=== PATIENT | male | born 1950 | race Hispanic/Latino ===

== ENCOUNTER 2021-09-15 06:16 | Inpatient (IN) | payer OTHER, MEDICARE ==
[~2021-09-15] VITALS: Ht 177.8 cm; Wt 90.7 kg
[~2021-09-15 06:16] MED LIST: CALCITRIOL0.25 MCG PO; CARVEDILOL25 MG PO; FINASTERIDE5 MG PO; FLOMAX0.4 MG PO; LIPITOR10 MG PO; NIFEDIPINE ER30 M1 PO; SENSIPAR60 MG PO; SEVELAMER CARB800 MG PO
[2021-09-15] MEDS ORDERED: SODIUM CHLORIDE 0.9% 500ML 500 ML ONE (06:46)
[2021-09-15] MEDS ORDERED: GENTAMICIN 80MG/NS 100 ML 100 ML IV ONE (06:56)
[2021-09-15] MEDS ORDERED: SODIUM CHLORIDE 0.9% 50ML 50 ML ONE (06:57)
[2021-09-15] MEDS ORDERED: PIPERACILLIN/TAZOBACTAM 3.375 GM VIAL ONE (06:57)
[2021-09-15 07:07] LABS: BASOPHILS % 0.3 % (0.0-1.0); EOSINOPHILS # (AUTO) 0.5 (0.0-0.4); EOSINOPHILS % 4.8 % (0.0-6.0); HEMATOCRIT 32.9 % (38.2-49.6); HEMOGLOBIN 10.5 g/dL (14.0-18.0); LYMPHOCYTES # (AUTO) 0.9 (1.0-3.2); LYMPHOCYTES % 9.3 % (18.0-39.1); MEAN CORPUSCULAR HEMOGLOBIN 29.4 pg (28-32); MEAN CORPUSCULAR HGB CONC 31.9 g/dL (31-35); MEAN CORPUSCULAR VOLUME 92.2 fL (81-99); MONOCYTES # (AUTO) 0.5 (0.2-0.8); MONOCYTES % 4.8 % (4.4-11.3); NEUTROPHILS % 80.5 % (38.7-80.0); PLATELET COUNT 178 x10e3/uL (140-360); RED BLOOD COUNT 3.57 x10e6/uL (4.3-5.7); RED CELL DISTRIBUTION WIDTH 13.7 % (11.7-14.4)
[2021-09-15 07:28] LABS: ANION GAP 13.4 mmol/L (8-16); CALCIUM 9.4 mg/dL (8.4-10.2); CREATININE, SERUM 8.51 mg/dL (0.72-1.25); POTASSIUM 5.4 mmol/L (3.5-5.1)
[2021-09-15 07:32] LABS: INR 1.01; PROTHROMBIN TIME 14.2 seconds (11.9-14.5)
[2021-09-15 07:33] LABS: PARTIAL THROMBOPLASTIN TIME 34.3 seconds (23.8-35.5)
[2021-09-15] MEDS ORDERED: IOPAMIDOL 300MG/ML 50ML INFUS..BTL IV ONE (08:25)
[2021-09-15] MEDS ORDERED: B&O 60MG R/S 60 MG SUPP PR ONE (08:25)
[2021-09-15] MEDS ORDERED: HEPARIN SOD/SOD CHLORIDE 1,000 ML ONE (08:34)
[2021-09-15] MEDS ORDERED: HYDRALAZINE HCL 20 MG/ML VIAL ONE (11:26)
[2021-09-15] MEDS ORDERED: FENTANYL CITRATE/PF 100MCG/2 ML INJ ONE ×2 (11:31→13:38)
[2021-09-15] MEDS ORDERED: PHENAZOPYRIDINE HCL 100 MG TAB PO PRN (11:45)
[2021-09-15] MEDS ORDERED: ONDANSETRON HCL INJ 2MG/ML 2ML 2 MG/ML VIAL IV PRN (11:45)
[2021-09-15] MEDS ORDERED: DIPHENHYDRAMINE HCL 25 MG CAP PO PRN (11:45)
[2021-09-15] MEDS ORDERED: Morphine 4mg Syringe 4 MG/ML INJ ONE ×2 (11:50→12:46)
[2021-09-15 12:16] LABS: BASOPHILS % 0.2 % (0.0-1.0); EOSINOPHILS # (AUTO) 0.3 (0.0-0.4); EOSINOPHILS % 1.7 % (0.0-6.0); HEMATOCRIT 35.5 % (38.2-49.6); HEMOGLOBIN 11.3 g/dL (14.0-18.0); LYMPHOCYTES # (AUTO) 0.7 (1.0-3.2); LYMPHOCYTES % 3.7 % (18.0-39.1); MEAN CORPUSCULAR HEMOGLOBIN 29.8 pg (28-32); MEAN CORPUSCULAR HGB CONC 31.8 g/dL (31-35); MEAN CORPUSCULAR VOLUME 93.7 fL (81-99); MONOCYTES # (AUTO) 0.1 (0.2-0.8); MONOCYTES % 0.8 % (4.4-11.3); NEUTROPHILS % 92.3 % (38.7-80.0); PLATELET COUNT 194 x10e3/uL (140-360); RED BLOOD COUNT 3.79 x10e6/uL (4.3-5.7); RED CELL DISTRIBUTION WIDTH 13.8 % (11.7-14.4)
[2021-09-15 12:38] LABS: ANION GAP 14.9 mmol/L (8-16); CALCIUM 8.9 mg/dL (8.4-10.2); CREATININE, SERUM 8.07 mg/dL (0.72-1.25); POTASSIUM 5.9 mmol/L (3.5-5.1)
[2021-09-15] MEDS ORDERED: DEXAMETHASONE SOD PHOS INJ 4 MG/ML SDV ONE (13:22)
[2021-09-15] MEDS ORDERED: SEVOFLURANE INHAL SOLN 250 ML PEN BTL ONE (13:22)
[2021-09-15] MEDS ORDERED: POVIDONE IODINE 0.05% 0.05 % ML PO ONE (13:22)
[2021-09-15] MEDS ORDERED: LIDOCAINE HCL 2% LOCAL INJ 5 ML SDV VIAL INJ ONE (13:22)
[2021-09-15] MEDS ORDERED: ONDANSETRON HCL INJ 2MG/ML 2ML 2 MG/ML VIAL ONE (13:22)
[2021-09-15] MEDS ORDERED: EPHEDRINE SULFATE INJ 50 MG/ML VIAL ONE (13:22)
[2021-09-15] MEDS ORDERED: PROPOFOL IV EMULSION 10 MG/ML 20 ML VIAL ONE (13:22)
[2021-09-15] MEDS ORDERED: MIDAZOLAM HCL 2 MG/2 ML VIAL ONE (13:38)
[2021-09-15 13:48] VITALS: BP 131/63
[2021-09-15 13:49] VITALS: BP 131/63
[2021-09-15 13:53] VITALS: BP 131/63
[2021-09-15] MEDS: SODIUM CHLORIDE 0.9% 1000ML 1,000 ML IV SCH (14:34)
[2021-09-15] MEDS: TRAMADOL HCL 50 MG TAB PO PRN (14:34)
[2021-09-15] MEDS: PIPERACILLIN/TAZOBACTAM 2.25 GM in SODIUM CHLORIDE 0.9% 50ML 50 ML IV SCH ×2 (14:48→23:21)
[2021-09-15] MEDS ORDERED: SOD POLYSTYRENE SULFONATE SUSP 15 GM/60 ML BTL PO ONE (16:00)
[2021-09-15 16:04] VITALS: BP 127/65
[2021-09-15] MEDS: DOCUSATE SODIUM 100 MG CAP PO SCH (16:07)
[2021-09-15] MEDS: SODIUM BICARBONATE 650 MG TAB PO SCH (16:18)
[2021-09-15 20:00] VITALS: BP 123/67
[2021-09-15 21:09] VITALS: BP 123/67
[2021-09-16] VITALS (7 sets, daily range): BP systolic 122–150; BP diastolic 72–77
[2021-09-16] MEDS: SODIUM CHLORIDE 0.9% 1000ML 1,000 ML IV SCH ×2 (04:54→16:47)
[2021-09-16 05:55] LABS: BASOPHILS % 0.1 % (0.0-1.0); HEMATOCRIT 31.8 % (38.2-49.6); HEMOGLOBIN 10.2 g/dL (14.0-18.0); LYMPHOCYTES # (AUTO) 0.6 (1.0-3.2); LYMPHOCYTES % 3.1 % (18.0-39.1); MEAN CORPUSCULAR HEMOGLOBIN 29.6 pg (28-32); MEAN CORPUSCULAR HGB CONC 32.1 g/dL (31-35); MEAN CORPUSCULAR VOLUME 92.2 fL (81-99); MONOCYTES # (AUTO) 0.9 (0.2-0.8); MONOCYTES % 4.6 % (4.4-11.3); NEUTROPHILS # (AUTO) 18.5 (2.1-6.9); NEUTROPHILS % 91.5 % (38.7-80.0); PLATELET COUNT 203 x10e3/uL (140-360); RED BLOOD COUNT 3.45 x10e6/uL (4.3-5.7); RED CELL DISTRIBUTION WIDTH 13.9 % (11.7-14.4)
[2021-09-16 06:25] LABS: CALCIUM 9.1 mg/dL (8.4-10.2); CREATININE, SERUM 7.72 mg/dL (0.72-1.25)
[2021-09-16] MEDS: PIPERACILLIN/TAZOBACTAM 2.25 GM in SODIUM CHLORIDE 0.9% 50ML 50 ML IV SCH ×2 (06:49→14:37)
[2021-09-16] MEDS: DOCUSATE SODIUM 100 MG CAP PO SCH ×2 (08:49→16:19)
[2021-09-16] MEDS: SODIUM BICARBONATE 650 MG TAB PO SCH ×2 (08:49→16:20)
[2021-09-16] MEDS ORDERED: NON-FORMULARY MEDICATION (Carvedilol 25 MG) PO SCH (09:00)
[2021-09-16] MEDS: FINASTERIDE 5 MG TAB PO SCH (09:42)
[2021-09-16] MEDS: TAMSULOSIN HCL 0.4 MG CAP PO SCH ×2 (09:42→16:19)
[2021-09-16] MEDS: CARVEDILOL 12.5 MG TAB PO SCH ×2 (09:43→21:29)
[2021-09-16] MEDS: CALCITRIOL 0.25 MCG CAP PO SCH (09:43)
[2021-09-16] MEDS: CINACALCET 30 MG TAB PO SCH (12:30)
[2021-09-16] MEDS: SEVELAMER CARBONATE 800 MG TAB PO SCH ×2 (12:30→16:19)
[2021-09-16] MEDS: ATORVASTATIN 40 MG TAB PO SCH (21:29)
[2021-09-16] MEDS: NIFEDIPINE CR 30 MG TAB PO SCH (21:29)
[2021-09-17] VITALS (8 sets, daily range): BP systolic 108–147; BP diastolic 60–76
[2021-09-17] MEDS: PIPERACILLIN/TAZOBACTAM 2.25 GM in SODIUM CHLORIDE 0.9% 50ML 50 ML IV SCH ×4 (00:21→23:00)
[2021-09-17 05:50] LABS: BASOPHILS # (AUTO) 0.1 (0.0-0.1); BASOPHILS % 0.4 % (0.0-1.0); EOSINOPHILS # (AUTO) 0.5 (0.0-0.4); EOSINOPHILS % 3.8 % (0.0-6.0); HEMATOCRIT 29.2 % (38.2-49.6); HEMOGLOBIN 9.3 g/dL (14.0-18.0); LYMPHOCYTES # (AUTO) 0.9 (1.0-3.2); LYMPHOCYTES % 6.4 % (18.0-39.1); MEAN CORPUSCULAR HEMOGLOBIN 29.6 pg (28-32); MEAN CORPUSCULAR HGB CONC 31.8 g/dL (31-35); MONOCYTES # (AUTO) 0.9 (0.2-0.8); MONOCYTES % 6.3 % (4.4-11.3); NEUTROPHILS # (AUTO) 11.6 (2.1-6.9); NEUTROPHILS % 82.4 % (38.7-80.0); PLATELET COUNT 187 x10e3/uL (140-360); RED BLOOD COUNT 3.14 x10e6/uL (4.3-5.7)
[2021-09-17 06:13] LABS: ANION GAP 11.2 mmol/L (8-16); CREATININE, SERUM 7.8 mg/dL (0.72-1.25); POTASSIUM 4.2 mmol/L (3.5-5.1)
[2021-09-17] MEDS: SODIUM CHLORIDE 0.9% 1000ML 1,000 ML IV SCH ×3 (06:16→21:06)
[2021-09-17] MEDS: SEVELAMER CARBONATE 800 MG TAB PO SCH ×3 (07:30→16:30)
[2021-09-17] MEDS: CALCITRIOL 0.25 MCG CAP PO SCH (09:00)
[2021-09-17] MEDS: SODIUM BICARBONATE 650 MG TAB PO SCH ×2 (09:00→17:00)
[2021-09-17] MEDS: TAMSULOSIN HCL 0.4 MG CAP PO SCH ×2 (09:00→17:00)
[2021-09-17] MEDS: CINACALCET 30 MG TAB PO SCH (09:00)
[2021-09-17] MEDS: FINASTERIDE 5 MG TAB PO SCH (09:00)
[2021-09-17] MEDS: DOCUSATE SODIUM 100 MG CAP PO SCH ×2 (09:00→17:00)
[2021-09-17] MEDS ORDERED: ONDANSETRON HCL 4 MG ORAL DISINTEGRATING TAB PO PRN (09:00)
[2021-09-17] MEDS: CARVEDILOL 12.5 MG TAB PO SCH ×2 (09:00→21:07)
[2021-09-17] MEDS: TRAMADOL HCL 50 MG TAB PO PRN (18:30)
[2021-09-17] MEDS: ATORVASTATIN 40 MG TAB PO SCH (21:07)
[2021-09-17] MEDS: NIFEDIPINE CR 30 MG TAB PO SCH (21:07)
[2021-09-18] VITALS: BP 111/66
[2021-09-18 04:00] VITALS: BP 127/62
[2021-09-18] MEDS: PIPERACILLIN/TAZOBACTAM 2.25 GM in SODIUM CHLORIDE 0.9% 50ML 50 ML IV SCH ×2 (05:38→15:00)
[2021-09-18 05:55] LABS: BASOPHILS % 0.3 % (0.0-1.0); EOSINOPHILS # (AUTO) 0.6 (0.0-0.4); EOSINOPHILS % 6.3 % (0.0-6.0); HEMATOCRIT 26.3 % (38.2-49.6); HEMOGLOBIN 8.6 g/dL (14.0-18.0); LYMPHOCYTES # (AUTO) 0.7 (1.0-3.2); LYMPHOCYTES % 6.9 % (18.0-39.1); MEAN CORPUSCULAR HEMOGLOBIN 29.8 pg (28-32); MEAN CORPUSCULAR HGB CONC 32.7 g/dL (31-35); MONOCYTES # (AUTO) 0.6 (0.2-0.8); MONOCYTES % 6.2 % (4.4-11.3); NEUTROPHILS # (AUTO) 8.2 (2.1-6.9); NEUTROPHILS % 79.7 % (38.7-80.0); PLATELET COUNT 161 x10e3/uL (140-360); RED BLOOD COUNT 2.89 x10e6/uL (4.3-5.7); RED CELL DISTRIBUTION WIDTH 13.6 % (11.7-14.4)
[2021-09-18 06:20] LABS: ANION GAP 8.8 mmol/L (8-16); CALCIUM 7.7 mg/dL (8.4-10.2); CREATININE, SERUM 7.49 mg/dL (0.72-1.25); POTASSIUM 3.8 mmol/L (3.5-5.1)
[2021-09-18] MEDS: SEVELAMER CARBONATE 800 MG TAB PO SCH ×4 (07:30→16:30)
[2021-09-18 07:36] VITALS: BP 120/62
[2021-09-18] MEDS: SODIUM BICARBONATE 650 MG TAB PO SCH ×2 (09:00→17:00)
[2021-09-18] MEDS: CALCITRIOL 0.25 MCG CAP PO SCH (09:00)
[2021-09-18] MEDS: FINASTERIDE 5 MG TAB PO SCH (09:00)
[2021-09-18] MEDS: TAMSULOSIN HCL 0.4 MG CAP PO SCH ×2 (09:00→17:00)
[2021-09-18] MEDS: CINACALCET 30 MG TAB PO SCH (09:00)
[2021-09-18] MEDS: DOCUSATE SODIUM 100 MG CAP PO SCH ×2 (09:00→17:00)
[2021-09-18] MEDS: CARVEDILOL 12.5 MG TAB PO SCH (09:00)
[2021-09-18] MEDS: SODIUM CHLORIDE 0.9% 1000ML 1,000 ML IV SCH (09:10)
[2021-09-18 10:02] VITALS: BP 120/62
[2021-09-18 11:35] VITALS: BP 103/67
[2021-09-18 15:48] VITALS: BP 110/62
[2021-09-18] MEDS ORDERED: LEVOFLOXACIN250 MG PO (17:39)
== END 2021-09-18 18:03 | disposition home or self-care (01) | DRG 713 ==
LOC: OR 06:16 → PACU V 11:38 → MED/SURG 13:20
PROVIDERS: ADMIT Internal Medicine; ATTEND Internal Medicine
PROC: 0VB07ZX Excision of Prostate, Via Natural or Artificial Opening, Diagnostic (ICD-10-PCS; principal; 2021-09-15 09:24)
PROC: 0V508ZZ Destruction of Prostate, Via Natural or Artificial Opening Endoscopic (ICD-10-PCS; 2021-09-15 09:24)
PROC: 3E1M39Z Irrigation of Peritoneal Cavity using Dialysate, Percutaneous Approach (ICD-10-PCS; 2021-09-16)
DX: N40.1 Benign prostatic hyperplasia with lower urinary tract symptoms (principal); I12.0 Hypertensive chronic kidney disease with stage 5 chronic kidney disease or end stage renal disease; N18.5 Chronic kidney disease, stage 5; E87.2 Acidosis; N13.8 Other obstructive and reflux uropathy; R33.8 Other retention of urine; R31.29 Other microscopic hematuria; R97.20 Elevated prostate specific antigen [PSA]; E11.22 Type 2 diabetes mellitus with diabetic chronic kidney disease; Z99.2 Dependence on renal dialysis; Z96.652 Presence of left artificial knee joint; Z88.5 Allergy status to narcotic agent; Z85.038 Personal history of other malignant neoplasm of large intestine; Z98.890 Other specified postprocedural states; R39.14 Feeling of incomplete bladder emptying; Z20.822 Contact with and (suspected) exposure to COVID-19
CPT/HCPCS: 36415; 71046; 74420; 76872; 76998; 80048; 82948; 83735; 85025; 85610; 85730; 86705; 86706; 87340; 88305; 94799; C1758; J0360; J1100; J1580; J2001; J2250; J2270; J2405; J2543; J3010; J7030; J7040; U0002

== ENCOUNTER → 2022-10-27 | Outpatient (CLI) | payer MEDICARE ==
[~2022-10-27] MED LIST changes: +LEVOFLOXACIN250 MG PO
== END ==
LOC: US 12:31
PROVIDERS: ATTEND Urology
DX: N28.1 Cyst of kidney, acquired (principal); N18.9 Chronic kidney disease, unspecified
CPT/HCPCS: 74018; 76770